=== PATIENT | female | born 1965 | race American Indian/Alaskan Native ===

== ENCOUNTER 2016-04-27 01:17 | Emergency (ER) | payer SELFPAY ==
[2016-04-27 01:36] VITALS: BP 138/99
[2016-04-27 02:17] LABS: Basophils % (Auto) 0.8 % (0.0-1.8); Eosinophils % (Auto) 2.2 % (0.0-4.3); Hematocrit 40.2 % (30.3-42.9); Hemoglobin 13.1 gm/dl (10.1-14.3); Mean Corpuscular HGB Conc 33 % (30-34); Mean Corpuscular Hemoglobin 25 pg (28-32); Mean Corpuscular Volume 78 fl (79-97); Platelet Count 295 K/mm3 (140-440); Red Blood Count 5.15 M/mm3 (3.65-5.03); Red Cell Distribution Width 14.1 % (13.2-15.2); White Blood Count 7.8 K/mm3 (4.5-11.0)
[2016-04-27 02:38] LABS: BUN/Creatinine Ratio 17.14; Blood Urea Nitrogen 12 mg/dL (7-17); Calcium 8.9 mg/dL (8.4-10.2); Carbon Dioxide 27 mmol/L (22-30); Chloride 100.4 mmol/L (98-107); Glucose 135 mg/dL (65-100); Potassium 3.9 mmol/L (3.6-5.0); Sodium 138 mmol/L (137-145)
[2016-04-27 02:50] LABS: Anion Gap 15 mmol/L
--- NOTE | 2016-04-27 18:32 | ED Elopement Review ---
ED Pt Elopement review - Results review Lab results: Laboratory Tests 04/27/16 04/27/16 04/27/16 02:02 02:02 02:02 WBC 7.8 RBC 5.15 H Hgb 13.1 Hct 40.2 MCV 78 L MCH 25 L MCHC 33 RDW 14.1 Plt Count 295 Lymph % (Auto) 26.1 Worth % (Auto) 5.8 Eos % (Auto) 2.2 Baso % (Auto) 0.8 Lymph # 2.0 Worth # 0.5 Eos # 0.2 Baso # 0.1 Seg Neutrophils % 65.1 Seg Neutrophils # 5.1 Sodium 138 Potassium 3.9 Chloride 100.4 Carbon Dioxide 27 Anion Gap 15 BUN 12 Creatinine 0.7 Estimated GFR > 60 BUN/Creatinine Ratio 17.14 Glucose 135 H Calcium 8.9 Troponin T < 0.010 HCG, Qual Negative - Call Back decision Pt Call Back Decision: No action required
== END 2016-04-27 03:55 | disposition left against medical advice (07) ==
LOC: ED 01:17
DX: R07.9 Chest pain, unspecified (principal); Z53.21 Procedure and treatment not carried out due to patient leaving prior to being seen by health care provider
CPT/HCPCS: 36415; 80048; 84484; 84703; 85025; 93005; 93010